=== PATIENT | male | born 1955 | race Caucasian/White ===

== ENCOUNTER 2019-02-12 07:52 | Emergency (ER) | payer MEDICAID, OTHER ==
[~2019-02-12 07:52] MED LIST: ALBU1.25 NEB; ATOR10TA9 PO; CHOLESTEROL MED PO; OMEP-110 PO; TIOT18CA INH; VITAMIN D PO
[2019-02-12] MEDS ORDERED: EPINEPHRINE SYRINGE 0.1 MG/ML, 10ML ONE (08:00)
[2019-02-12] MEDS ORDERED: SODIUM BICARBONATE 1 MEQ/ML, 50ML VIAL ONE (08:00)
[2019-02-12] MEDS ORDERED: EPINEPHRINE SYRINGE 0.1 MG/ML, 10ML IVPush ONE (08:30)
--- NOTE | 2019-02-12 09:38 | NUR ---
LATE NOTE 07:54- PT ARRIVED VIA [facility] WITH CPR IN PROGRESS. PT WAS FOUND DOWN AT HOME BY FRIEND THAT LIVES WITH PATIENT. [facility] ARRIVED AND PT WAS GIVEN 4 ROUNDS OF EPINEPHRINE AND NARCAN X 2 BY RADHA. PT ARRIVED AT 07: [address] VILLA AT BEDSIDE AT 07:54. CPR INITIATED. SEE CPR DOCUMENTATION.
--- NOTE | 2019-02-12 10:27 | NUR ---
LATE ENTRY: MEASUREMENT DEPARTMENT CHIEF CLERK CALLED AND PATIENT IS A [facility]'S CASE MEASUREMENT DEPARTMENT CHIEF CLERK DEVANG SALAZAR- AT BEDSIDE. BELONGINGS AND PATIENT ASSESSED BY MEASUREMENT DEPARTMENT CHIEF CLERK. PAIENT TAKEN BY JAIRON VARGAS AT 1025 TO CORONERS OFFICE.
--- NOTE | 2019-02-12 10:36 | NUR ---
LATE ENTRY 0820- FRIEND AT BEDSIDE WAS IN PATIENT ROOM AND PULLED OUT ET TUBE. DR. VILLA AWARE. DR. VILLA SPOKE WITH FRIEND AND STATED THAT "SHE WAS NOT ALLOWED TO DO THIS". FRIEND STATED " IM SORRY, I DID NOT KNOW THAT I COULD NOT DO THIS." FRIEND CONTINUE TO APOLOGIZE. MANUFACTURING PRODUCTION TECHNICIAN AWARE OF ET TUBE BEING PULLED BY FRIEND AT BEDSIDE.
== END 2019-02-12 11:06 | disposition expired ==
LOC: ED 08:02 → MERGE 08:02 → ED 11:06
DX: I46.9 Cardiac arrest, cause unspecified (principal)
CPT/HCPCS: 31500; 92950; 92960; 99285